=== PATIENT | male | born 1975 | race Caucasian/White ===

== ENCOUNTER 2018-11-10 13:27 | Emergency (ER) | payer SELFPAY ==
--- OUTSIDE RECORDS SUMMARY | 2018-11-10 13:29 | XMS REPORT | Continuity of Care Document ---
:1975 Author Organization [facility] Address [address] [place] [address] Phone Unavailable Care Team Providers Name Role Phone PHYSICIAN, NO Primary Care Physician Unavailable Insurance Providers Guarantor Geeta Newman Address [address] [place] [address] Email NONE Payer Self Pay Insurance Subscriber's Name Geeta Newman Relationship Self / Same As Patient Group Number NA Group Name NA Advance Directives Directive Response Recorded Date/Time Advance Directive on File No 08/02/18 11:18pm Name of Surrogate/Decision Maker NA 08/02/18 11:19pm Patient/Family Given Education Material R/T Y - KR...08/02/18 08/02/18 11: 19pm Directives? Chief Complaint and Reason for Visit Chief Complaint Extremity Pain/Injury Reason for Visit Contusion of hand Problems Active ProblemsNo active problem information available. Past Problems Medical Problem Onset Date Status Cellulitis of right upper extremity Unknown Acute Contusion of hand Unknown Acute Lumbago Unknown Acute Poison loulou dermatitis Unknown Acute Medications Current Home Medications Medication Dose Units Route Directions Days Qty Instructions Start Date Acetamin/Codei 1 Tab ORAL Every 6 Hours 15 Tablet 08/03/18 ne 300/30 Mg * As Needed as (Tylenol With needed for Codeine #3 300/30 Mg *) 300/30 Mg Tab Naproxen 1 Tab ORAL Twice A Day 30 Days 60 Tablet 08/03/18 (Naproxen 500 for Pain Mg) 500 Mg Tab Past Home Medications Medication Directions Ordered Status Acetaminophen W/ Codeine #3 * Every 6 Hours As Needed for 08/12/17 Discontinued (Tylenol Codeine #3 300MG/30MG *) Pain 1 Tab Tab, 1 Tab Oral Clindamycin Hcl (Cleoci 300 Mgn Three Times A Day for 08/12/17 Discontinued *) 300 Mg Cap, 1 Cap Oral Cellulitis Fluconazole (Diflucan *) 100 Mg Daily for Fungal Infection 08/12/17 Discontinued Tab, 100 Mg Oral Social History Social History Problem Response Recorded Date/Time Onset Date Status Hx Physical Abuse No 08/02/2018 11:18pm Not Applicable Not Applicable Smoking Status Start Date Stop Date Never smoker Hospital Discharge Instructions No hospital discharge instruction information available. Plan of Care Discharge Date 08/03/18 12:16am Instructions/Education Provided Hand Contusion, [id number]-Ewmx Prescriptions See Medication Section Referrals NO PHYSICIAN Additional Instructions/Education Recommend that you take the Tylenol #3 as needed for pain, also take the Naproxen 500 mg 2 times daily for inflammatory pain, and follow up with your primary doctor in 2 days for re check of your condition, or otherwise return to the ED if your condition worsens. Functional Status No functional status information available. Allergies, Adverse Reactions, Alerts Allergen Type Severity Reaction Status Last Updated Iodine ([id number]) Allergy Severe Active 08/10/17 Sulfur ([id number]) Allergy Severe Active 08/10/17 Penicillins ([id number]) Allergy Severe Active 08/10/17 Immunizations Immunization Event Date Type Not Given Dose Number Lot Number Glass Cut Off Tender Reason TDaP 08/10/17 Not Given Other SANOFI PS Vital Signs Acute Vital Signs Vital Response Date/Time Blood Pressure 118/82 mm Hg 08/03/2018 12:15am Pulse Pulse Rate (adult) 72 beats per minute (60 - 100) 08/03/2018 12:15am Respiratory Rate 16 breaths per minute (10 - 24) 08/03/2018 12:15am Temperature Source Oral 08/02/2018 11:18pm Height 5 ft 8.5 in 08/02/2018 11:18pm Weight 205 lb 08/02/2018 11:18pm Body Mass Index 30.7 kg/m^2 08/02/2018 11:18pm Results No relevant diagnostic test, laboratory data and/or discharge summary information available. Procedures Procedure Status Date Provider(s) X-ray of right hand, three or more views Completed 08/02/18 ROSALBA OQUENDO MD Encounters Encounter Location Arrival/Admit Date Discharge/Depart Date Attending Provider Departed [place] 08/02/18 11:13pm 08/03/18 12:16am ROSALBA OQUENDO Emergency [facility] Recent Diagnosis
--- OUTSIDE RECORDS SUMMARY | 2018-11-10 13:30 | XMS REPORT | Continuity of Care Document ---
:1975 Author Organization [facility] Address [address] [place] [address] Phone Unavailable Care Team Providers Name Role Phone PHYSICIAN, NO Primary Care Physician Unavailable Insurance Providers Guarantor Geeta Newman Address [address] [place] [address] Email NONE Payer Self Pay Insurance Subscriber's Name Geeta Newman Relationship Self / Same As Patient Group Number NA Group Name NA Advance Directives Directive Response Recorded Date/Time Advance Directive on File No 09/13/18 12:25pm Name of Surrogate/Decision Maker NA 09/13/18 1:16pm Patient/Family Given Education Material R/T Y - 09-13-...MP 09/13/18 1: 16pm Directives? Chief Complaint and Reason for Visit Chief Complaint Skin Rash/Abscess/Wound Reason for Visit Allergic contact dermatitis Problems Active ProblemsNo active problem information available. Past Problems Medical Problem Onset Date Status Allergic contact dermatitis Unknown Acute Cellulitis of right upper extremity Unknown Acute Contusion of hand Unknown Acute Lumbago Unknown Acute Poison loulou dermatitis Unknown Acute Medications Current Home Medications Medication Dose Units Route Directions Days Qty Instructions Start Date Acetamin/Codeine 1 Tab ORAL Every 6 Hours 15 08/03/ 300/30 Mg * (Tylenol As Needed as Tablet 19 With Codeine #3 needed for 300/30 Mg *) 300/30 Mg Tab Methylprednisolone 1 Pkt ORAL As Directed 1 Packet FOLLOW 09/13/ (Medrol Dosepak *) 1 for INSTRUCTIONS 19 Pkt Pkt Inflammation ON DOSEPAK Naproxen (Naproxen 1 Tab ORAL Twice A Day 30 60 02/17/ 500 Mg) 500 Mg Tab for Pain Days Tablet 19 Past Home Medications Medication Directions Ordered Status Acetaminophen W/ Codeine #3 * Every 6 Hours As Needed for 08/12/17 Discontinued (Tylenol Codeine #3 300MG/30MG *) Pain 1 Tab Tab, 1 Tab Oral Clindamycin Hcl (Cleoci 300 Mgn) Three Times A Day for 08/12/17 Discontinued 300 Mg Cap, 1 Cap Oral Cellulitis Fluconazole (Diflucan *) 100 Mg Daily for Fungal Infection 08/12/17 Discontinued Tab, 100 Mg Oral Social History Social History Problem Response Recorded Date/Time Onset Date Status Hx Physical Abuse No 09/13/2018 12:25pm Not Applicable Not Applicable Smoking Status Start Date Stop Date Never smoker Hospital Discharge Instructions No hospital discharge instruction information available. Plan of Care Discharge Date 09/13/18 1:21pm Instructions/Education Provided Contact Dermatitis, Wmli-[id number] Forms Provided Portal Welcome Letter Prescriptions See Medication Section Referrals NO PHYSICIAN Additional Instructions/Education DIAGNOSIS: ALLERGIC CONTACT DERMATITIS PRESCRIPTION: MEDROL DOSE PACK DIRECTED FOLLOW UP: WITH PRIMARY CARE OR MAMMOGRAPHY TECHNOLOGIST IN 2 DAYS * RETURN TO EMERGENCY DEPARTMENT FOR ANY CHANGE IN CONDITION OR WORSENING* INSTRUCTIONS: DRINK PLENTY OF FLUIDS [facility] [employer] MAY TAKE BENADRYL NEEDED DAILY PER DIRECTIONS FOR ITCHING MAY TAKE TYLENOL OR IBUPROFEN PER BOTTLE DIRECTIONS AVOID CONTACT WITH ANY KNOWN ALLERGENS OR CHEMICALS Functional Status No functional status information available. Allergies, Adverse Reactions, Alerts Allergen Type Severity Reaction Status Last Updated Iodine ([id number]) Allergy Severe Active 08/10/17 Sulfur ([id number]) Allergy Severe Active 08/10/17 Penicillins ([id number]) Allergy Severe Active 08/10/17 Immunizations Immunization Event Date Type Not Given Dose Number Lot Number Cleaner And Preparer Reason TDaP 08/10/17 Not Given Other SANOFI PS Vital Signs Acute Vital Signs Vital Response Date/Time Blood Pressure 121/86 mm Hg 09/13/2018 1:25pm Pulse Pulse Rate (adult) 88 beats per minute (60 - 100) 09/13/2018 1:25pm Respiratory Rate 18 breaths per minute (10 - 24) 09/13/2018 1:25pm Temperature Source Oral 09/13/2018 1:25pm Results No relevant diagnostic test, laboratory data and/or discharge summary information available. Procedures Procedure Status Date Provider(s) EMERGENCY DEPT VISIT Completed 08/02/18 X-RAY EXAM OF HAND Completed 08/02/18 X-ray of right hand, three or more views Completed 08/02/18 ROSALBA OQUENDO MD Encounters Encounter Location Arrival/Admit Date Discharge/Depart Date Attending Provider Departed [place] 09/13/18 12:13pm 09/13/18 1:21pm REAGAN WASSERMAN Emergency Room [facility] Departed [place] 08/02/18 11:13pm 08/03/18 12:16am ROSALBA OQUENDO Emergency [facility] Recent Diagnosis
--- OUTSIDE RECORDS SUMMARY | 2018-11-10 13:30 | XMS REPORT | Continuity of Care Document ---
:1975 Author Organization [facility] Address [address] [place] [address] Phone Unavailable Care Team Providers Name Role Phone PHYSICIAN, NO Primary Care Physician Unavailable Insurance Providers Guarantor Geeta Newman Address [address] [place] [address] Email NONE Payer Self Pay Insurance Subscriber's Name Geeta Newman Relationship Self / Same As Patient Group Number NA Group Name NA Advance Directives Directive Response Recorded Date/Time Advance Directive on File No 10/01/18 9:04pm Patient/Family Given Education Material R/T Y - 10/01/18...MK 10/01/18 9: 53pm Directives? Chief Complaint and Reason for Visit Chief Complaint Skin Rash/Abscess/Wound Reason for Visit Poison ngoc dermatitis Problems Medical Problem Onset Date Status Poison ngoc dermatitis Unknown Acute Past Problems Medical Problem Onset Date Status Allergic contact dermatitis Unknown Acute Cellulitis of right upper extremity Unknown Acute Contusion of hand Unknown Acute Lumbago Unknown Acute Poison ngoc dermatitis Unknown Acute Medications Current Home Medications Medication Dose Units Route Directions Days Qty Instructions Start Date Acetamin/Codeine 1 Tab ORAL Every 6 Hours 15 08/03/ 300/30 Mg * (Tylenol As Needed as Tablet 19 With Codeine #3 needed for 300/30 Mg *) 300/30 Mg Tab Methylprednisolone 1 Pkt ORAL As Directed 1 FOLLOW 09/13/ (Medrol Dosepak *) 1 for Packet INSTRUCTIONS 19 Pkt Pkt Inflammation ON DOSEPAK Naproxen (Naproxen 1 Tab ORAL Twice A Day 30 60 08/03/ 500 Mg) 500 Mg Tab for Pain Days Tablet 19 Triamcinolone 1 Applic TOPICAL Twice A Day 30 15 Gram apply to 10/01/ Acetonide for Allergy Days affected 19 (Aristocort 0.5% *) area(s) 15 Gm Cr Past Home Medications Medication Directions Ordered Status [...] Onset Date Status Hx Physical Abuse No 10/01/2018 9:04pm Not Applicable Not Applicable Smoking Status Start Date Stop Date Never smoker Hospital Discharge Instructions No hospital discharge instruction information available. Plan of Care Discharge Date 10/01/18 9:50pm Instructions/Education Provided Poison Ngoc Dermatitis, Bxre-tz-[id number] Forms Provided Portal Welcome Letter Prescriptions See Medication Section Referrals NO PHYSICIAN Additional Instructions/Education CONTINUE WITH OVER THE COUNTER BENADRYL, CALAMINE, AND HYDROCORTISONE CREAM . ALSO CAN USE PRESCRIPTION STRENGTH TRIAMCINOLONE 0.5 % CREAM APPLY TO AFFECTED AREA TWICE A DAY. FOLLOW UP WITH A PRIMARY CARE PROVIDER IN 2-3 DAYS RETURN TO THE ER IF YOUR SYMPTOMS WORSEN Functional Status No functional status information available. Allergies, Adverse Reactions, Alerts Allergen Type Severity Reaction Status Last Updated Iodine ([id number]) Allergy Severe Active 08/10/17 Sulfur ([id number]) Allergy Severe Active 08/10/17 Penicillins ([id number]) Allergy Severe Active 08/10/17 Immunizations Immunization Event Date Type Not Given Dose Number Lot Number Assistant Secretary Reason TDaP 08/10/17 Not Given Other SANOFI PS Vital Signs Acute Vital Signs Vital Response Date/Time Blood Pressure 135/80 mm Hg 10/01/2018 9:53pm Pulse Pulse Rate (adult) 72 beats per minute (60 - 100) 10/01/2018 9:53pm Respiratory Rate 20 breaths per minute (10 - 24) 10/01/2018 9:53pm Temperature Source Oral 10/01/2018 9:53pm Height 5 ft 8 in 10/01/2018 9:04pm Weight 203.13 lb 10/01/2018 9:04pm Body Mass Index 30.9 kg/m^2 10/01/2018 9:04pm Results No relevant diagnostic test, laboratory data and/or discharge summary information available. Procedures Procedure Status Date Provider(s) EMERGENCY DEPT VISIT Completed 08/02/18 X-RAY EXAM OF HAND Completed 08/02/18 EMERGENCY DEPT VISIT Completed 09/13/18 THER/PROPH/DIAG INJ SC/IM Completed 09/13/18 X-ray of right hand, three or more views Completed 08/02/18 ROSALBA OQUENDO MD Encounters Encounter Location Arrival/Admit Date Discharge/Depart Date Attending Provider Registered [place] 10/01/18 9:00pm ROSALBA OQUENDO Emergency Room [facility] Departed [place] 09/13/18 12:13pm 09/13/18 1:21pm REAGAN WASSERMAN Emergency Room [facility] Departed [place] 08/02/18 11:13pm 08/03/18 12:16am ROSALBA OQUENDO Emergency Room [facility] Recent Diagnosis
--- NOTE | 2018-11-10 13:52 | EDPHYS ---
Physician Documentation [facility] Name: Artis Myers Age: 43 yrs Sex: Male : 1975 Arrival Date: 11/10/2018 Time: 13:28 Bed 12 Private MD: Unknown, Unknown ED Physician Justin Glez HPI: 11/10 13:51 This 43 yrs old Male presents to ER via Ambulatory with complaints of Rash. pm1 18:23 The patient's rash thought to be caused by possible poison ngoc. The rash is located on pm1 the right arm and left arm. The rash can be described as macular, papular. Onset: The symptoms/episode began/occurred 3 day(s) ago. Associated signs and symptoms: Pertinent positives: itching, Pertinent negatives: burning sensation, difficulty breathing, fever, swelling of lips, swelling of throat, swelling of tongue, vomiting. Severity of symptoms: in the emergency department the symptoms are unchanged Pain is currently a 0 / 10. Treatment given at home: OTC lotion/cream. The patient has not experienced similar symptoms in the past. The patient has not recently seen a physician. Onset after cutting down some trees/shrub with ngoc on it. Historical: - Allergies: 13:36 Iodine; sv 13:36 Sulfa (Sulfonamide Antibiotics); sv - PMHx: 13:36 None; sv - PSHx: 13:36 None; sv - Immunization history:: Adult Immunizations up to date. - Social history:: Smoking status: Patient/guardian denies using tobacco, Patient uses street drugs, marijuana. - Ebola Screening: : No symptoms or risks identified at this time. ROS: 18:23 Constitutional: Negative for fever, chills, and weight loss, Eyes: Negative for injury, pm1 pain, redness, and discharge, ENT: Negative for injury, pain, and discharge, Neck: Negative for injury, pain, and swelling, Cardiovascular: Negative for chest pain, palpitations, and edema, Respiratory: Negative for shortness of breath, cough, wheezing, and pleuritic chest pain, Abdomen/GI: Negative for abdominal pain, nausea, vomiting, diarrhea, and constipation, Back: Negative for injury and pain, : Negative for injury, bleeding, discharge, and swelling, MS/Extremity: Negative for injury and deformity. 18:23 Neuro: Negative for headache, weakness, numbness, tingling, and seizure. 18:23 Skin: Positive for rash, of the left arm and right arm. Exam: 18:23 Constitutional: This is a well developed, well nourished patient who is awake, alert, pm1 and in no acute distress. Head/Face: Normocephalic, atraumatic. Eyes: Pupils equal round and reactive to light, extra-ocular motions intact. Lids and lashes normal. Conjunctiva and sclera are non-icteric and not injected. Cornea within normal limits. Periorbital areas with no swelling, redness, or edema. ENT: Nares patent. No nasal discharge, no septal abnormalities noted. Tympanic membranes are normal and external auditory canals are clear. Oropharynx with no redness, swelling, or masses, exudates, or evidence of obstruction, uvula midline. Mucous membranes moist. Neck: Trachea midline, no thyromegaly or masses palpated, and no cervical lymphadenopathy. Supple, full range of motion without nuchal rigidity, or vertebral point tenderness. No Meningismus. Chest/axilla: Normal chest wall appearance and motion. Nontender with no deformity. No lesions are appreciated. Cardiovascular: Regular rate and rhythm with a normal S1 and S2. No gallops, murmurs, or rubs. Normal PMI, no JVD. No pulse deficits. Respiratory: Lungs have equal breath sounds bilaterally, clear to auscultation and percussion. No rales, rhonchi or wheezes noted. No increased work of breathing, no retractions or nasal flaring. Abdomen/GI: Soft, non-tender, with normal bowel sounds. No distension or tympany. No guarding or rebound. No evidence of tenderness throughout. Back: No spinal tenderness. No costovertebral tenderness. Full range of motion. 18:23 Skin: Appearance: normal except for affected area, consistent with contact dermatitis, on the left arm and right arm. Vital Signs: 13:36 BP 130 / 78; Pulse 86; Resp 16; Temp 98; Pulse Ox 99% ; Weight 95.25 kg; Height 5 ft. 8 sv in. (172.72 cm); Pain 0/10; 13:36 Body Mass Index 31.93 (95.25 kg, 172.72 cm) sv MDM: 13:46 Patient medically screened. pm1 13:51 Data reviewed: vital signs. Data interpreted: Pulse oximetry: on room air is 99 %. pm1 Interpretation: normal. Counseling: I had a detailed discussion with the patient and/or guardian regarding: the historical points, exam findings, and any diagnostic results supporting the discharge/admit diagnosis, the need for outpatient follow up, to return to the emergency department if symptoms worsen or persist or if there are any questions or concerns that arise at home. Administered Medications: 14:01 Drug: predniSONE 60 mg Route: PO; 14:09 Follow up: Response: Medication administered at discharge. ss 14:01 Drug: Pepcid 20 mg Route: PO; ss 14:10 Follow up: Response: Medication administered at discharge. Disposition: 19:53 Co-signature as Attending Physician, Justin Glez MD. ma2 Disposition: 11/10/18 13:52 Discharged to Home. Impression: Allergic contact dermatitis. - Condition is Stable. - Discharge Instructions: Contact Dermatitis, Poison Ngoc Dermatitis. - Prescriptions for Benadryl 25 mg Oral Capsule - take 1 capsule by ORAL route every 6 hours As needed; 30 tablet. Keflex 500 mg Oral Capsule - take 1 capsule by ORAL route every 6 hours for 10 days; 40 capsule. Pepcid 20 mg Oral Tablet - take 1 tablet by ORAL route every 12 hours for 10 days; 20 tablet. Medrol (Eric) 4 mg Oral Tablets, Dose Pack - take 1 tablet by ORAL route as directed - follow package instructions; 1 packet. - Medication Reconciliation Form, Thank You Letter, Antibiotic Education, Prescription Opioid Use form. - Follow up: Emergency Department; When: As needed; Reason: Worsening of condition. Follow up: Private Physician; When: 2 - 3 days; Reason: Recheck today's complaints, Continuance of care, Re-evaluation by your physician. - Problem is new. - Symptoms have improved. Signatures: Rula Peterson RN RN Christina Olivares RN RN ss Aljeandro Martínez NP SENIOR C DEVELOPER pm1 Justin Glez MD MD ma2 Corrections: (The following items were deleted from the chart) 14:10 13:52 11/10/2018 13:52 Discharged to Home. Impression: Allergic contact dermatitis. ss Condition is Stable. Forms are Medication Reconciliation Form, Thank You Letter, Antibiotic Education, Prescription Opioid Use. Follow up: Emergency Department; When: As needed; Reason: Worsening of condition. Follow up: Private Physician; When: 2 - 3 days; Reason: Recheck today's complaints, Continuance of care, Re-evaluation by your physician. Problem is new. Symptoms have improved. pm1
--- NOTE | 2018-11-10 13:52 | ER ---
Nurse's Notes [facility] Name: Artis Myers Age: 43 yrs Sex: Male : 1975 Arrival Date: 11/10/2018 Time: 13:28 Bed 12 Private MD: Unknown, Unknown Diagnosis: Allergic contact dermatitis Presentation: 11/10 13:35 Presenting complaint: Patient states: rash to bilateral arms started 3 days ago. sv Transition of care: patient was not received from another setting of care. Onset of symptoms was November 08, 2018. Care prior to arrival: None. 13:35 Method Of Arrival: Ambulatory sv 13:35 Acuity: DAIANA 5 sv 14:10 Risk Assessment: Do you want to hurt yourself or someone else? Patient reports no ss desire to harm self or others. Initial Sepsis Screen: Does the patient meet any 2 criteria? No. Patient's initial sepsis screen is negative. Does the patient have a suspected source of infection? No. Patient's initial sepsis screen is negative. Historical: - Allergies: 13:36 Iodine; sv 13:36 Sulfa (Sulfonamide Antibiotics); sv - PMHx: 13:36 None; sv - PSHx: 13:36 None; sv - Immunization history:: Adult Immunizations up to date. - Social history:: Smoking status: Patient/guardian denies using tobacco, Patient uses street drugs, marijuana. - Ebola Screening: : No symptoms or risks identified at this time. Screenin:00 Abuse screen: Denies threats or abuse. Denies injuries from another. Nutritional ss screening: No deficits noted. Tuberculosis screening: Never had TB. Fall Risk None identified. Assessment: 14:04 General: Appears in no apparent distress. comfortable, Behavior is calm, cooperative. ss Pain: Denies pain. Neuro: Level of Consciousness is awake, alert, obeys commands. Cardiovascular: Capillary refill < 3 seconds is brisk in bilateral fingers. Respiratory: Airway is patent Respiratory effort is even, unlabored, Respiratory pattern is regular, symmetrical. EENT: Oral mucosa is moist. Derm: Skin is intact, is healthy with good turgor, Skin is dry, Skin is pink, warm \T\ dry. normal. Derm: Skin Rash noted that is itchy, red. Vital Signs: 13:36 BP 130 / 78; Pulse 86; Resp 16; Temp 98; Pulse Ox 99% ; Weight 95.25 kg; Height 5 ft. 8 sv in. (172.72 cm); Pain 0/10; 13:36 Body Mass Index 31.93 (95.25 kg, 172.72 cm) sv ED Course: 13:28 Patient arrived in ED. ag5 13:30 Unknown, Unknown is Private Physician. ag5 13:36 Triage completed. sv 13:36 Arm band placed on. sv 13:39 Alejandro Martínez NP is PHCP. pm1 13:39 Justin Glez MD is Attending Physician. pm1 14:00 Patient has correct armband on for positive identification. Bed in low position. Call ss light in reach. 14:01 Christina Olivares, NICK is Primary Nurse. ss 14:06 No provider procedures requiring assistance completed. Patient did not have IV access ss during this emergency room visit. Administered Medications: 14:01 Drug: predniSONE 60 mg Route: PO; ss 14:09 Follow up: Response: Medication administered at discharge. 14:01 Drug: Pepcid 20 mg Route: PO; ss 14:10 Follow up: Response: Medication administered at discharge. Outcome: 13:52 Discharge ordered by . pm1 14:06 Discharged to home ambulatory. ss 14:06 Condition: good 14:06 Discharge instructions given to patient, family, Instructed on discharge instructions, follow up and referral plans. medication usage, Demonstrated understanding of instructions, follow-up care, medications, Prescriptions given X 4. 14:10 Patient left the ED. Signatures: Rula Peterson RN RN Christina Olivares RN RN Alejandro Martínez NP INDIVIDUAL SMALL GROUP INSTRUCTOR pm1 JonnyOphelia ag5
[2018-11-10] MEDS ORDERED: predniSONE 20 MG TAB ONE (14:14)
[2018-11-10] MEDS ORDERED: FAMOTIDINE 20 MG TAB ONE (14:14)
== END 2018-11-10 14:10 | disposition home or self-care (01) ==
LOC: ER 13:27
DX: L23.9 Allergic contact dermatitis, unspecified cause (principal); Z88.2 Allergy status to sulfonamides; Z88.8 Allergy status to other drugs, medicaments and biological substances
CPT/HCPCS: 99283; J7512

== ENCOUNTER 2019-08-11 18:18 | Emergency (ER) | payer SELFPAY ==
[2019-08-11] MEDS ORDERED: CYCLOBENZAPRINE 10 MG TAB ONE (19:54)
[2019-08-11] MEDS ORDERED: KETOROLAC 30 MG/ML INJ ONE (19:54)
--- NOTE | 2019-08-12 00:09 | EDPHYS ---
Physician Documentation [facility] Name: Artis Myers Age: 43 yrs Sex: Male : 1975 Arrival Date: 08/11/2019 Time: 18:20 Bed 15 Private MD: ED Physician Vahid Mcnamara HPI: 08/11 20:27 This 43 yrs old Male presents to ER via Ambulatory with complaints of Low tw4 Back Pain. 20:27 The patient presents with pain that is chronic, with no known mechanism of injury. tw4 20:28 The symptoms are located in the low back. The pain does not radiate. The problem was tw4 sustained without known cause. Onset: The symptoms/episode began/occurred 2 week(s) ago. Modifying factors: The patient symptoms are alleviated by rest, the patient symptoms are aggravated by lifting, movement. Severity of symptoms: At their worst the symptoms were mild, in the emergency department the symptoms are unchanged. The patient has not experienced similar symptoms in the past. Historical: - Allergies: 18:21 Iodine; sv 18:21 Sulfa (Sulfonamide Antibiotics); sv - PMHx: 18:22 None; sv - PSHx: 18:21 None; sv - Immunization history:: Adult Immunizations up to date. - Coronavirus screen:: The patient has NOT traveled to [place] in the past 14 days. Proceed with normal triage process as indicated. The patient has NOT had contact with known/suspected case of Coronavirus? Proceed with normal triage procedures. - Social history:: Smoking status: Patient denies any tobacco usage or history of. - Ebola Screening: : No symptoms or risks identified at this time. ROS: 20:28 Constitutional: Negative for fever, chills, and weight loss, Eyes: Negative for injury, tw4 pain, redness, and discharge, Cardiovascular: Negative for chest pain, palpitations, and edema, Respiratory: Negative for shortness of breath, cough, wheezing, and pleuritic chest pain, Abdomen/GI: Negative for abdominal pain, nausea, vomiting, diarrhea, and constipation, MS/Extremity: Negative for injury and deformity, Skin: Negative for injury, rash, and discoloration, Neuro: Negative for headache, weakness, numbness, tingling, and seizure. 20:28 Back: Positive for decreased range of motion, pain at rest, pain with movement, Negative for injury or acute deformity. Exam: 20:28 Constitutional: This is a well developed, well nourished patient who is awake, alert, tw4 and in no acute distress. Head/Face: Normocephalic, atraumatic. Chest/axilla: Normal chest wall appearance and motion. Nontender with no deformity. No lesions are appreciated. Cardiovascular: Regular rate and rhythm with a normal S1 and S2. No gallops, murmurs, or rubs. Normal PMI, no JVD. No pulse deficits. Respiratory: Lungs have equal breath sounds bilaterally, clear to auscultation and percussion. No rales, rhonchi or wheezes noted. No increased work of breathing, no retractions or nasal flaring. Abdomen/GI: Soft, non-tender, with normal bowel sounds. No distension or tympany. No guarding or rebound. No evidence of tenderness throughout. Skin: Warm, dry with normal turgor. Normal color with no rashes, no lesions, and no evidence of cellulitis. MS/ Extremity: Pulses equal, no cyanosis. Neurovascular intact. Full, normal range of motion. 20:28 Back: pain, that is mild, of the left low back and right low back, muscle spasm, is tw4 appreciated in the left low back and right low back. Vital Signs: 18:22 BP 130 / 89; Pulse 71; Resp 16; Temp 97.7; Pulse Ox 100% ; Weight 90.72 kg; Height 5 sv ft. 8 in. (172.72 cm); Pain 7/10; 20:30 BP 123 / 83; Pulse 75; Resp 17; Temp 98; Pulse Ox 99% on R/A; rr5 18:22 Body Mass Index 30.41 (90.72 kg, 172.72 cm) sv MDM: 19:39 Patient medically screened. tw4 20:28 Differential diagnosis: arthritis, strain, contusion, UTI. Data reviewed: vital signs, tw4 nurses notes. Data reviewed: lab test result(s), urinalysis. Counseling: I had a detailed discussion with the patient and/or guardian regarding: the historical points, exam findings, and any diagnostic results supporting the discharge/admit diagnosis, lab results. Medication response: Toradol markedly relieved the patient's pain. Response to treatment: and as a result, I will discharge patient. Special discussion: I discussed with the patient/guardian in detail that at this point there is no indication for admission to the hospital. It is understood, however, that if the symptoms persist or worsen the patient needs to return immediately for re-evaluation. 08/11 20:10 Order name: Urine Dipstick-Ancillary (obtain specimen); Complete Time: 20:24 tw4 Administered Medications: 19:54 Drug: Flexeril 10 mg Route: PO; rr5 20:30 Follow up: Response: No adverse reaction rr5 19:55 Drug: TORadol 60 mg Route: IM; Site: right gluteus; rr5 20:30 Follow up: Response: No adverse reaction rr5 Disposition: 08/11/19 20:19 Discharged to Home. Impression: Sprain of ligaments of lumbar spine. - Condition is Stable. - Discharge Instructions: Back Pain, Adult, Back Injury Prevention. - Prescriptions for Ibuprofen 800 mg Oral Tablet - take 1 tablet by ORAL route every 8 hours As needed take with food; 30 tablet. Cyclobenzaprine 10 mg Oral Tablet - take 1 tablet by ORAL route every 8 hours As needed; 30 tablet. Tramadol 50 mg Oral Tablet - take 1 tablet by ORAL route every 8 hours as needed; 12 tablet. - Medication Reconciliation Form, Thank You Letter, Antibiotic Education, Prescription Opioid Use form. - Follow up: Private Physician; When: Upon discharge from the Emergency Department; Reason: If symptoms return, Recheck today's complaints, Continuance of care, Re-evaluation by your physician. - Problem is new. - Symptoms have improved. Signatures: Rula Peterson RN RN Vahid Mcnamara MD MD tw4 Salvador Martinez RN RN rr5 Corrections: (The following items were deleted from the chart) 20:41 20:19 08/11/2019 20:19 Discharged to Home. Impression: Sprain of ligaments of lumbar rr5 spine. Condition is Stable. Forms are Medication Reconciliation Form, Thank You Letter, Antibiotic Education, Prescription Opioid Use. Follow up: Private Physician; When: Upon discharge from the Emergency Department; Reason: If symptoms return, Recheck today's complaints, Continuance of care, Re-evaluation by your physician. Problem is new. Symptoms have improved. tw4
--- NOTE | 2019-08-12 00:10 | ER ---
Nurse's Notes [facility] Name: Artis Myers Age: 43 yrs Sex: Male : 1975 Arrival Date: 08/11/2019 Time: 18:20 Bed 15 Private MD: Diagnosis: Sprain of ligaments of lumbar spine Presentation: 08/11 18:21 Presenting complaint: Patient states: "tight feeling" around the low back area and side sv x couple of weeks. Denies fall or recent injury. Transition of care: patient was not received from another setting of care. Onset of symptoms was July 2019. Care prior to arrival: None. 18:21 Method Of Arrival: Ambulatory sv 18:21 Acuity: DAIANA 3 sv 19:30 Risk Assessment: Do you want to hurt yourself or someone else? Patient reports no rr5 desire to harm self or others. Initial Sepsis Screen: Does the patient meet any 2 criteria? No. Patient's initial sepsis screen is negative. Does the patient have a suspected source of infection? No. Patient's initial sepsis screen is negative. Triage Assessment: 18:23 General: Appears in no apparent distress. uncomfortable, Behavior is calm, cooperative, sv appropriate for age. Pain: Complains of pain in low back area. Neuro: Level of Consciousness is awake, alert, obeys commands, Gait is steady. Respiratory: Respiratory effort is even, unlabored. Historical: - Allergies: 18:21 Iodine; sv 18:21 Sulfa (Sulfonamide Antibiotics); sv - PMHx: 18:22 None; sv - PSHx: 18:21 None; sv - Immunization history:: Adult Immunizations up to date. - Coronavirus screen:: The patient has NOT traveled to [place] in the past 14 days. Proceed with normal triage process as indicated. The patient has NOT had contact with known/suspected case of Coronavirus? Proceed with normal triage procedures. - Social history:: Smoking status: Patient denies any tobacco usage or history of. - Ebola Screening: : No symptoms or risks identified at this time. Screenin:20 Abuse screen: Denies threats or abuse. Denies injuries from another. Nutritional rr5 screening: No deficits noted. Tuberculosis screening: No symptoms or risk factors identified. Fall Risk None identified. Total Echevarria Fall Scale indicates No Risk (0-24 pts). Assessment: 19:20 General: Appears in no apparent distress. uncomfortable, Behavior is calm, cooperative, rr5 appropriate for age. 19:20 Pain: Complains of pain in left low back and right low back Pain does not radiate. Pain rr5 currently is 7 out of 10 on a pain scale. Quality of pain is described as aching, Pain began gradually, Is intermittent. Neuro: Level of Consciousness is awake, alert, obeys commands, Oriented to person, place, time, situation. Cardiovascular: Capillary refill < 3 seconds Patient's skin is warm and dry. Respiratory: Airway is patent Respiratory effort is even, unlabored, Respiratory pattern is regular, symmetrical. GI: Abdomen is round Bowel sounds present X 4 quads. Abd is soft and non tender X 4 quads. Patient currently denies abdominal pain. : Denies burning with urination, pain. EENT: No signs and/or symptoms were reported regarding the EENT system. Derm: Skin is intact, is healthy with good turgor, Skin temperature is warm. Musculoskeletal: Circulation, motion, and sensation intact. Capillary refill < 3 seconds. 20:38 Reassessment: Patient appears in no apparent distress at this time. Patient is alert, rr5 oriented x 3, equal unlabored respirations, skin warm/dry/pink. discharge instruction given and explained without complaints made. Patient states feeling better. Patient states symptoms have improved. Vital Signs: 18:22 BP 130 / 89; Pulse 71; Resp 16; Temp 97.7; Pulse Ox 100% ; Weight 90.72 kg; Height 5 sv ft. 8 in. (172.72 cm); Pain 7/10; 20:30 BP 123 / 83; Pulse 75; Resp 17; Temp 98; Pulse Ox 99% on R/A; rr5 18:22 Body Mass Index 30.41 (90.72 kg, 172.72 cm) sv ED Course: 18:20 Patient arrived in ED. as 18:21 Arm band placed on. sv 18:22 Triage completed. sv 19:20 Patient has correct armband on for positive identification. Bed in low position. Call rr5 light in reach. 19:38 Salvador Martinez RN is Primary Nurse. rr5 19:39 Vahid Mcnamara MD is Attending Physician. tw4 20:30 No provider procedures requiring assistance completed. IV discontinued. rr5 Administered Medications: 19:54 Drug: Flexeril 10 mg Route: PO; rr5 20:30 Follow up: Response: No adverse reaction rr5 19:55 Drug: TORadol 60 mg Route: IM; Site: right gluteus; rr5 20:30 Follow up: Response: No adverse reaction rr5 Outcome: 20:19 Discharge ordered by . tw4 20:30 Discharged to home ambulatory. rr5 20:30 Condition: stable 20:30 Discharge instructions given to patient, Instructed on discharge instructions, follow up and referral plans. medication usage, Demonstrated understanding of instructions, follow-up care, medications, Prescriptions given X 2. 20:41 Patient left the ED. rr5 Signatures: Rula Peterson, RN RN Ebonie Mcpherson Terrence, MD MD tw4 Salvador Martinez RN RN rr5 Corrections: (The following items were deleted from the chart) 18:23 18:21 Presenting complaint: Patient states: "tight feeling" around the low back area sv and side x couple of weeks. sv 18:24 18:22 Pulse 71bpm; Resp 16bpm; Pulse Ox 100%; Temp 97.7F; 90.72 kg; Height 5 ft. 8 in.; sv BMI: 30.4; sv
[2019-08-12 02:33] VITALS: BP 123/83; TEMP 98; O2SAT 99
== END 2019-08-11 20:41 | disposition home or self-care (01) ==
LOC: ER 18:18
DX: S33.5XXA Sprain of ligaments of lumbar spine, initial encounter (principal); Z88.2 Allergy status to sulfonamides; Z91.048 Other nonmedicinal substance allergy status
CPT/HCPCS: 96372; 99283

== ENCOUNTER 2020-01-25 15:42 | Emergency (ER) | payer SELFPAY ==
[2020-01-25] MEDS ORDERED: DIPHENHYDRAMINE 50 MG/ML VIAL ONE (16:37)
[2020-01-25] MEDS ORDERED: METHYLPREDNISOLONE 125 MG INJ ONE (16:37)
--- NOTE | 2020-01-26 07:29 | ER ---
Nurse's Notes [facility] Name: Artis Myers Age: 44 yrs Sex: Male : 1975 Arrival Date: 01/25/2020 Time: 15:47 Bed 8 Private MD: Diagnosis: Dermatitis, unspecified-Poison Ngoc Presentation: 01/24 15:56 Chief complaint: Patient states: poison ngoc rash for 2.5 weeks. Trying OTC calamine, ll1 not helping. Coronavirus screen: Client denies travel out of the [place] in the last 14 days. At this time, the client does not indicate any symptoms associated with coronavirus-19. Ebola Screen: Patient denies travel to an Ebola-affected area in the 21 days before illness onset. Initial Sepsis Screen: Does the patient meet any 2 criteria? No. Patient's initial sepsis screen is negative. Risk Assessment: Do you want to hurt yourself or someone else? Patient reports no desire to harm self or others. Onset of symptoms was January 05, 2020. 15:56 Acuity: DAIANA 4 ll1 15:56 Method Of Arrival: Ambulatory ll1 16:43 Initial Sepsis Screen: Does the patient have a suspected source of infection? No. jl7 Patient's initial sepsis screen is negative. Historical: - Allergies: 15:55 Sulfa (Sulfonamide Antibiotics); ll1 15:55 Iodine; ll1 - PSHx: 15:55 Ear Tubes; ll1 - Immunization history:: Flu vaccine is not up to date. - Social history:: Smoking status: Patient denies any tobacco usage or history of. Patient/guardian denies using alcohol, street drugs, tobacco products. - Family history:: not pertinent. - Hospitalizations: : No recent hospitalization is reported. Screenin:15 Abuse screen: Denies threats or abuse. Denies injuries from another. Nutritional jl7 screening: No deficits noted. Tuberculosis screening: No symptoms or risk factors identified. Fall Risk None identified. Assessment: 16:15 General: Appears in no apparent distress. uncomfortable, Behavior is calm, cooperative, jl7 appropriate for age. Pain: Complains of pain in left arm and right arm Pain currently is 7 out of 10 on a pain scale. Neuro: Level of Consciousness is awake, alert, obeys commands, Oriented to person, place, time, situation. Cardiovascular: Patient's skin is warm and dry. Respiratory: Airway is patent Respiratory effort is even, unlabored, Respiratory pattern is regular, symmetrical. Derm: Skin is pink, warm \T\ dry. Rash noted that is red, urticaria. 16:35 Reassessment: Pt will be discharged once shot time is up. jl7 Vital Signs: 15:56 BP 149 / 86; Pulse 89; Resp 18; Temp 98.6; Pulse Ox 100% ; Weight 86.18 kg; Height 5 ll1 ft. 9 in. (175.26 cm); Pain 7/10; 16:51 BP 133 / 98; Pulse 84; Resp 17; Pulse Ox 100% ; jl7 15:56 Body Mass Index 28.06 (86.18 kg, 175.26 cm) ll1 ED Course: 15:47 Patient arrived in ED. ds1 15:56 Arm band placed on Patient placed in an exam room, on a stretcher. ll1 15:57 Triage completed. ll1 15:59 Christopher Jenkins MD is Attending Physician. rn 16:15 Patient has correct armband on for positive identification. Placed in gown. Bed in low jl7 position. Call light in reach. Side rails up X 1. Pulse ox on. NIBP on. 16:24 Grecia Shabazz, NICK is Primary Nurse. jl7 16:50 No provider procedures requiring assistance completed. Patient did not have IV access jl7 during this emergency room visit. Administered Medications: 16:33 Drug: Benadryl 50 mg Route: IM; Site: right deltoid; jl7 16:51 Follow up: Response: No adverse reaction jl7 16:34 Drug: SOLU-Medrol 125 mg Route: IM; Site: left deltoid; jl7 16:51 Follow up: Response: No adverse reaction jl7 Outcome: 16:26 Discharge ordered by . rn 16:50 Discharged to home ambulatory. jl7 16:50 Condition: stable 16:50 Discharge instructions given to patient, Instructed on discharge instructions, follow up and referral plans. medication usage, Demonstrated understanding of instructions, follow-up care, medications, Prescriptions given X 1. 16:52 Patient left the ED. jl7 Signatures: Racquel Carranza ds1 Christopher Jenikns MD MD rn Leal, Jahala, RN RN jl7 Fabrizio, Lynsay, RN RN ll1
--- NOTE | 2020-01-26 07:29 | EDPHYS ---
Physician Documentation [facility] [place] [place] Name: Artis Myers Age: 44 yrs Sex: Male : 1975 Arrival Date: 01/25/2020 Time: 15:47 Bed 8 Private MD: ED Physician Christopher Jenkins HPI: 01/24 16:22 This 44 yrs old Male presents to ER via Ambulatory with complaints of Rash. rn 16:22 The patient's rash thought to be caused by Dermatitis. The rash is located on the right rn arm and left arm. 16:23 Onset: The symptoms/episode began/occurred 2 week(s) ago. Associated signs and rn symptoms: Pertinent positives: itching, Pain. Treatment given at home: OTC lotion/cream. The patient has not experienced similar symptoms in the past. Reports working in yard, thinks got into poison ngoc, no fever, + itching, using lotion that is not making it go away. No sob or swelling. Isolated to arms. . Historical: - Allergies: 15:55 Sulfa (Sulfonamide Antibiotics); ll1 15:55 Iodine; ll1 - PSHx: 15:55 Ear Tubes; ll1 - Immunization history:: Flu vaccine is not up to date. - Social history:: Smoking status: Patient denies any tobacco usage or history of. Patient/guardian denies using alcohol, street drugs, tobacco products. - Family history:: not pertinent. - Hospitalizations: : No recent hospitalization is reported. ROS: 16:23 Constitutional: Negative for fever, chills, and weight loss, Respiratory: Negative for rn shortness of breath, cough, wheezing, and pleuritic chest pain, Skin: + rash to bilateral arms that is itchy Exam: 16:23 Constitutional: This is a well developed, well nourished patient who is awake, alert, rn and in no acute distress. Skin: Warm, dry, + erythematous rash bilateral arms in linear distribution with some coalescence, no fluctuance, no cellulitis. Vital Signs: 15:56 BP 149 / 86; Pulse 89; Resp 18; Temp 98.6; Pulse Ox 100% ; Weight 86.18 kg; Height 5 ll1 ft. 9 in. (175.26 cm); Pain 7/10; 16:51 BP 133 / 98; Pulse 84; Resp 17; Pulse Ox 100% ; jl7 15:56 Body Mass Index 28.06 (86.18 kg, 175.26 cm) ll1 MDM: 15:59 Patient medically screened. rn 16:23 Differential diagnosis: contact dermatitis, poison ngoc. Data reviewed: vital signs, rn nurses notes, and as a result, I will discharge patient. Counseling: I had a detailed discussion with the patient and/or guardian regarding: the historical points, exam findings, and any diagnostic results supporting the discharge/admit diagnosis, the need for outpatient follow up, to return to the emergency department if symptoms worsen or persist or if there are any questions or concerns that arise at home. Special discussion: I discussed with the patient/guardian in detail that at this point there is no indication for admission to the hospital. It is understood, however, that if the symptoms persist or worsen the patient needs to return immediately for re-evaluation. Administered Medications: 16:33 Drug: Benadryl 50 mg Route: IM; Site: right deltoid; [facility] 16:51 Follow up: Response: No adverse reaction [facility] 16:34 Drug: SOLU-Medrol 125 mg Route: IM; Site: left deltoid; jl7 16:51 Follow up: Response: No adverse reaction [facility] Disposition: 01/25/20 16:26 Discharged to Home. Impression: Dermatitis, unspecified - Poison Ngoc. - Condition is Stable. - Discharge Instructions: Poison Ngoc Dermatitis. - Prescriptions for Prednisone 20 mg Oral Tablet - take 1 tablet by ORAL route as directed for 10 days Days 1-5: Take 3 tablets PO once daily. Days 6-8: Take 2 tablets PO daily. Days 9-10: Take 1 tablet PO daily. Total of 10 days.; 23 tablet. - Medication Reconciliation Form, Thank You Letter, Antibiotic Education, Prescription Opioid Use form. - Follow up: Private Physician; When: As needed; Reason: Recheck today's complaints, Re-evaluation by your physician. - Problem is an ongoing problem. - Symptoms are unchanged. Signatures: Christopher Jenkins MD MD rn Leal, Jahala, RN RN jl7 Raoul Dinh RN RN ll1 Corrections: (The following items were deleted from the chart) 16:52 16:26 01/25/2020 16:26 Discharged to Home. Impression: Dermatitis, unspecified - Poison jl7 Ngoc. Condition is Stable. Forms are Medication Reconciliation Form, Thank You Letter, Antibiotic Education, Prescription Opioid Use. Follow up: Private Physician; When: As needed; Reason: Recheck today's complaints, Re-evaluation by your physician. Problem is an ongoing problem. Symptoms are unchanged. rn
[2020-01-26 09:12] VITALS: TEMP 98.6; O2SAT 100
[2020-01-26 09:13] VITALS: BP 133/98
== END 2020-01-25 16:52 | disposition home or self-care (01) ==
LOC: ER 15:42
DX: L30.9 Dermatitis, unspecified (principal); Z88.2 Allergy status to sulfonamides; Z91.048 Other nonmedicinal substance allergy status
CPT/HCPCS: 96372; 99283; J1200; J2930

== ENCOUNTER 2020-05-10 19:31 | Emergency (ER) | payer SELFPAY ==
--- NOTE | 2020-05-10 19:58 | ER ---
Nurse's Notes [facility] Name: Artis Myers Age: 44 yrs Sex: Male : 1975 Arrival Date: 05/10/2020 Time: 19:32 Bed 13 Private MD: Diagnosis: Allergic contact dermatitis Presentation: 05/10 19:51 Chief complaint: Patient states: Exposure to poison Ngoc 2 days ago. Rashes started ca1 yesterday on both arms, face, worse today. Denies difficulty breathing and swallowing. Coronavirus screen: Client denies travel out of the [place] in the last 14 days. At this time, the client does not indicate any symptoms associated with coronavirus-19. Ebola Screen: Patient negative for fever greater than or equal to 101.5 degrees Fahrenheit, and additional compatible Ebola Virus Disease symptoms Patient denies exposure to infectious person. Patient denies travel to an Ebola-affected area in the 21 days before illness onset. No symptoms or risks identified at this time. Initial Sepsis Screen: Does the patient meet any 2 criteria? No. Patient's initial sepsis screen is negative. Does the patient have a suspected source of infection? No. Patient's initial sepsis screen is negative. Risk Assessment: Do you want to hurt yourself or someone else? Patient reports no desire to harm self or others. Onset of symptoms was May 10, 2020. 19:51 Method Of Arrival: Ambulatory ca1 19:51 Acuity: DAIANA 4 ca1 Triage Assessment: 19:54 General: Appears in no apparent distress. comfortable, Behavior is calm, cooperative, ca1 appropriate for age. Pain: Denies pain. EENT: No signs and/or symptoms were reported regarding the EENT system. Neuro: Level of Consciousness is awake, alert, obeys commands, Oriented to person, place, time, situation, Appropriate for age. Derm: Skin is intact, is healthy with good turgor, Skin is pink, warm \T\ dry. Rash noted that is itchy, red, raised, on right cheek, right arm and left arm. Musculoskeletal: Circulation, motion, and sensation intact. Capillary refill < 3 seconds. Historical: - Allergies: 19:54 Iodine; ca1 19:54 Sulfa (Sulfonamide Antibiotics); ca1 - Home Meds: 19:54 None [Active]; ca1 - PMHx: 19:54 None; ca1 - PSHx: 19:54 Ear Tubes; ca1 - Immunization history:: Adult Immunizations up to date, Flu vaccine is not up to date. - Social history:: Smoking status: Patient reports the use of cigarette tobacco products, denies chronic smoking, but will smoke occasionally, Patient uses street drugs, marijuana. Screenin:55 Abuse screen: Denies threats or abuse. Denies injuries from another. Nutritional ca1 screening: No deficits noted. Tuberculosis screening: No symptoms or risk factors identified. Fall Risk None identified. Assessment: 19:55 Reassessment: See triage notes. ca1 20:18 Reassessment: Patient appears in no apparent distress at this time. Patient is alert, ca1 oriented x 3, equal unlabored respirations, skin warm/dry/pink. Vital Signs: 19:51 BP 128 / 85; Pulse 75; Resp 16 S; Temp 98(TE); Pulse Ox 99% on R/A; Weight 85.73 kg ca1 (R); Height 5 ft. 9 in. (175.26 cm) (R); Pain 0/10; 19:51 Body Mass Index 27.91 (85.73 kg, 175.26 cm) ca1 ED Course: 19:32 Patient arrived in ED. am2 19:53 Triage completed. ca1 19:54 Arm band placed on right wrist. ca1 19:55 Alejandro Martínez NP is PHCP. pm1 19:55 Kenneth Velasquez MD is Attending Physician. pm1 19:55 Patient has correct armband on for positive identification. ca1 19:55 No provider procedures requiring assistance completed. Patient did not have IV access ca1 during this emergency room visit. 19:59 Chrissy Correa, NICK is Primary Nurse. ca1 Administered Medications: 19:58 Drug: Benadryl 25 mg Route: PO; ca1 20:17 Follow up: Response: No adverse reaction ca1 20:00 Drug: Pepcid 20 mg Route: PO; ca1 20:17 Follow up: Response: No adverse reaction ca1 20:02 Drug: SOLU-Medrol 125 mg Route: IM; Site: right gluteus; ca1 20:17 Follow up: Response: No adverse reaction ca1 Outcome: 19:58 Discharge ordered by . pm1 20:18 Discharged to home ambulatory. ca1 20:18 Condition: stable 20:18 Discharge instructions given to patient, Instructed on discharge instructions, follow up and referral plans. medication usage, Demonstrated understanding of instructions, follow-up care, medications, Prescriptions given X 3. 20:18 Patient left the ED. ca1 Signatures: Alejandro Martínez NP PSYCHOTHERAPIST COUNSELOR pm1 Jennifer Lozoya am2 Chrissy Correa RN RN ca1
--- NOTE | 2020-05-10 19:58 | EDPHYS ---
Physician Documentation [facility] Name: Artis Myers Age: 44 yrs Sex: Male : 1975 Arrival Date: 05/10/2020 Time: 19:32 Bed 13 Private MD: RIKKI Physician Kenneth Velasquez HPI: 05/10 19:56 This 44 yrs old Male presents to ER via Ambulatory with complaints of Rash. pm1 19:56 The patient's rash thought to be caused by poison ngoc. The rash is located on the right pm1 arm and left arm and right cheek. The rash can be described as raised. Onset: The symptoms/episode began/occurred 2 day(s) ago. Associated signs and symptoms: Pertinent negatives: difficulty breathing, fever, swelling of lips, swelling of throat, swelling of tongue, wheezing. Severity of symptoms: in the emergency department the symptoms are worse. Treatment given at home: None. The patient has experienced similar episodes in the past, a few times. Historical: - Allergies: 19:54 Iodine; ca1 19:54 Sulfa (Sulfonamide Antibiotics); ca1 - Home Meds: 19:54 None [Active]; ca1 - PMHx: 19:54 None; ca1 - PSHx: 19:54 Ear Tubes; ca1 - Immunization history:: Adult Immunizations up to date, Flu vaccine is not up to date. - Social history:: Smoking status: Patient reports the use of cigarette tobacco products, denies chronic smoking, but will smoke occasionally, Patient uses street drugs, marijuana. ROS: 19:56 Constitutional: Negative for fever, chills, and weight loss, ENT: Negative for injury, pm1 pain, and discharge, Cardiovascular: Negative for chest pain, palpitations, and edema, Respiratory: Negative for shortness of breath, cough, wheezing, and pleuritic chest pain, Abdomen/GI: Negative for abdominal pain, nausea, vomiting, diarrhea, and constipation, Back: Negative for injury and pain, MS/Extremity: Negative for injury and deformity, Skin: Negative for injury, rash, and discoloration, Neuro: Negative for headache, weakness, numbness, tingling, and seizure. Exam: 19:56 Constitutional: This is a well developed, well nourished patient who is awake, alert, pm1 and in no acute distress. Head/Face: Normocephalic, atraumatic. 19:56 Cardiovascular: Exam negative for Rate: normal, Rhythm: regular, Pulses: no pulse deficits are appreciated. 19:56 Respiratory: Exam negative for acute changes, respiratory distress, shortness of breath, wheezing. 19:56 Skin: Appearance: normal except for affected area, consistent with contact dermatitis. 19:56 Neuro: Exam negative for acute changes, Orientation: is normal, Mentation: is normal, Motor: is normal, Gait: is steady, at a normal pace, without difficulty. Vital Signs: 19:51 BP 128 / 85; Pulse 75; Resp 16 S; Temp 98(TE); Pulse Ox 99% on R/A; Weight 85.73 kg ca1 (R); Height 5 ft. 9 in. (175.26 cm) (R); Pain 0/10; 19:51 Body Mass Index 27.91 (85.73 kg, 175.26 cm) ca1 MDM: 19:56 Data reviewed: vital signs. Data interpreted: Pulse oximetry: on room air is 99 %. pm1 Interpretation: normal. Counseling: I had a detailed discussion with the patient and/or guardian regarding: the historical points, exam findings, and any diagnostic results supporting the discharge/admit diagnosis, the need for outpatient follow up, a family practitioner, to return to the emergency department if symptoms worsen or persist or if there are any questions or concerns that arise at home. 19:57 Patient medically screened. pm1 Administered Medications: 19:58 Drug: Benadryl 25 mg Route: PO; ca1 20:17 Follow up: Response: No adverse reaction ca1 20:00 Drug: Pepcid 20 mg Route: PO; ca1 20:17 Follow up: Response: No adverse reaction ca1 20:02 Drug: SOLU-Medrol 125 mg Route: IM; Site: right gluteus; ca1 20:17 Follow up: Response: No adverse reaction ca1 Disposition: 05/11 10:58 Co-signature as Attending Physician, Kenneth Velasquez MD I agree with the assessment and matilda plan of care. Disposition: 05/10/20 19:58 Discharged to Home. Impression: Allergic contact dermatitis. - Condition is Stable. - Discharge Instructions: Poison Ngoc Dermatitis. - Prescriptions for Benadryl 25 mg Oral Capsule - take 1 capsule by ORAL route every 6 hours As needed; 30 tablet. Medrol (Eric) 4 mg Oral Tablets, Dose Pack - take 1 tablet by ORAL route as directed - follow package instructions; 1 packet. Pepcid 20 mg Oral Tablet - take 1 tablet by ORAL route every 12 hours for 10 days; 20 tablet. - Medication Reconciliation Form, Thank You Letter, Antibiotic Education, Prescription Opioid Use form. - Follow up: Emergency Department; When: As needed; Reason: Worsening of condition. Follow up: Private Physician; When: 2 - 3 days; Reason: Recheck today's complaints, Continuance of care, Re-evaluation by your physician. - Problem is new. - Symptoms have improved. Signatures: Kenneth Velasquez MD MD cha Marinas, Patrick [employer] SUPERVISOR [employer] SUPERVISOR pm1 Madeline, Chrissy RN RN ca1 Corrections: (The following items were deleted from the chart) 05/10 20:18 19:58 05/10/2020 19:58 Discharged to Home. Impression: Allergic contact dermatitis. ca1 Condition is Stable. Forms are Medication Reconciliation Form, Thank You Letter, Antibiotic Education, Prescription Opioid Use. Follow up: Emergency Department; When: As needed; Reason: Worsening of condition. Follow up: Private Physician; When: 2 - 3 days; Reason: Recheck today's complaints, Continuance of care, Re-evaluation by your physician. Problem is new. Symptoms have improved. pm1
[2020-05-10] MEDS ORDERED: FAMOTIDINE 20 MG TAB ONE (20:11)
[2020-05-10] MEDS ORDERED: METHYLPREDNISOLONE 125 MG INJ ONE (20:11)
[2020-05-10] MEDS ORDERED: DIPHENHYDRAMINE 25 MG TAB/CAP ONE (20:11)
[2020-05-11 02:57] VITALS: BP 128/85; TEMP 98; O2SAT 99
== END 2020-05-10 20:18 | disposition home or self-care (01) ==
LOC: ER 19:31
DX: L23.9 Allergic contact dermatitis, unspecified cause (principal); F17.210 Nicotine dependence, cigarettes, uncomplicated; Z88.2 Allergy status to sulfonamides; Z91.048 Other nonmedicinal substance allergy status
CPT/HCPCS: 96372; 99283; J2930

== ENCOUNTER 2020-11-08 20:06 | Emergency (ER) | payer SELFPAY ==
[2020-11-08] MEDS ORDERED: ONDANSETRON 4 MG/2 ML VIAL ONE (21:38)
[2020-11-08] MEDS ORDERED: NA CHLORIDE 0.9% 1,000 ML ONE (21:38)
[2020-11-08] MEDS ORDERED: MORPHINE 4 MG/ML SYR ONE (21:38)
[2020-11-08 21:41] LABS: Absolute Lymphocytes (CBC) 0.3 K/uL (0.7-4.9); Basophils % 0.2 % (0-1.3); Hematocrit 41.1 % (39.6-49.0); Lymphocytes % 2.9 % (15.3-44.8); MPV 7.3 fL (7.6-11.3); RBC Red Blood Cell Count 4.76 M/uL (4.33-5.43)
[2020-11-08 21:53] LABS: Albumin 3.9 g/dL (3.4-5.0); Bilirubin Direct 0.2 mg/dL (0-0.2); Bilirubin Total 0.9 mg/dL (0.2-1.0); Potassium 3.5 mmol/L (3.5-5.1); Protein, Total 7.6 g/dL (6.4-8.2)
[2020-11-08 23:04] LABS: Blood Morphology Comment NOT SEEN (NOT SEEN); Platelet Estimate ADEQ
[2020-11-09 00:03] LABS: Urine Blood Negative (Negative); Urine Glucose Negative (Negative); Urine Protein Negative (Negative); Urine Specific Gravity >=1.030 (1.005-1.030); Urine pH 5.5 (5.0-7.0)
--- NOTE | 2020-11-09 00:41 | ER ---
Nurse's Notes [facility] Name: Artis Myers Age: 45 yrs Sex: Male : 1975 Arrival Date: 11/08/2020 Time: 20:12 Bed 4 Private MD: Diagnosis: Low back pain Presentation: 11/08 20:40 Chief complaint: Patient states: body aches x1 week, denies fever/chills. Coronavirus ak2 screen: Client denies travel out of the [place] in the last 14 days. Ebola Screen: Patient negative for fever greater than or equal to 101.5 degrees Fahrenheit, and additional compatible Ebola Virus Disease symptoms Patient denies exposure to infectious person. Patient denies travel to an Ebola-affected area in the 21 days before illness onset. No symptoms or risks identified at this time. Initial Sepsis Screen: Does the patient meet any 2 criteria? No. Patient's initial sepsis screen is negative. Does the patient have a suspected source of infection? No. Patient's initial sepsis screen is negative. Risk Assessment: Do you want to hurt yourself or someone else? Patient reports no desire to harm self or others. Onset of symptoms was November 01, 2020. 20:40 Method Of Arrival: Ambulatory ak2 20:40 Acuity: DAIANA 3 ak2 20:40 Acuity: DAIANA 4 ak2 20:40 Acuity: DAIANA 3 ak2 Triage Assessment: 20:43 General: Appears in no apparent distress. Behavior is calm, cooperative. Pain:. Pain: ak2 Complains of pain in back. Musculoskeletal: Historical: - Allergies: 20:43 Iodine; ak2 20:43 Sulfa (Sulfonamide Antibiotics); ak2 - Immunization history:: Adult Immunizations up to date. - Social history:: Smoking status: unknown. - Family history:: not pertinent. Screenin:30 Abuse screen: Denies threats or abuse. Denies injuries from another. Nutritional ad5 screening: No deficits noted. Tuberculosis screening: No symptoms or risk factors identified. Fall Risk None identified. Assessment: 21:30 General: Appears uncomfortable, Behavior is calm, cooperative, appropriate for age. ad5 Pain: Complains of pain in lower abd, lower back. Neuro: Level of Consciousness is awake, alert, obeys commands, Oriented to person, place, time, situation, Appropriate for age Technical Editor are equal bilaterally Moves all extremities. Gait is steady, Speech is normal, Facial symmetry appears normal, Pupils are PERRLA, Intact. Cardiovascular: Heart tones present Capillary refill < 3 seconds Patient's skin is warm and dry. Pulses are all present. Rhythm is regular. Respiratory: Airway is patent Respiratory effort is even, unlabored, Respiratory pattern is regular, symmetrical, Breath sounds are clear bilaterally. GI: Abdomen is flat, Bowel sounds present X 4 quads. Reports lower abdominal pain, nausea. : Reports burning with urination, pain in bilateral flank(s), urinary frequency. EENT: No deficits noted. Derm: No deficits noted. Skin is pink, warm \T\ dry. Musculoskeletal: No deficits noted. 22:28 Reassessment: Patient and/or family updated on plan of care and expected duration. Pain ad5 level reassessed. Patient is alert, oriented x 3, equal unlabored respirations, skin warm/dry/pink. Patient states feeling better. 23:26 Reassessment: Patient appears in no apparent distress at this time. No changes from ad5 previously documented assessment. Patient and/or family updated on plan of care and expected duration. Pain level reassessed. Patient is alert, oriented x 3, equal unlabored respirations, skin warm/dry/pink. 11/09 00:50 Reassessment: Patient appears in no apparent distress at this time. No changes from ad5 previously documented assessment. Patient states symptoms have improved. Vital Signs: 11/08 20:40 BP 112 / 79; Pulse 91; Resp 20; Temp 98.8; Pulse Ox 100% ; Weight 86.18 kg; Height 5 ak2 ft. 9 in. (175.26 cm); 22:28 BP 133 / 81; Pulse 80; Resp 16 S; Pulse Ox 98% on R/A; Pain 5/10; ad5 23:27 BP 128 / 73; Pulse 84; Resp 16 S; Pulse Ox 97% on R/A; ad5 11/09 00:50 BP 110 / 74; Pulse 90; Resp 16 S; Pulse Ox 97% on R/A; Pain 3/10; ad5 11/08 20:40 Body Mass Index 28.06 (86.18 kg, 175.26 cm) ak2 ED Course: 11/08 20:12 Patient arrived in ED. ag3 20:43 Triage completed. ak2 20:54 Justin Glez MD is Attending Physician. ma2 20:57 Flaco Jesus is Primary Nurse. ad5 21:25 Initial lab(s) drawn, by me, sent to lab. Inserted saline lock: 20 gauge in right ad5 antecubital area, using aseptic technique. 21:30 Patient has correct armband on for positive identification. Bed in low position. Call ad5 light in reach. Side rails up X2. Pulse ox on. NIBP on. Warm blanket given. Head of bed lowered. 21:30 No provider procedures requiring assistance completed. ad5 23:36 Abdomen Sent. ad5 23:59 Abdomen In Process Unspecified. EDMS 11/09 00:51 IV discontinued, intact, bleeding controlled, No redness/swelling at site. Pressure ad5 dressing applied. Administered Medications: 11/08 21:27 Drug: NS 0.9% 1000 ml Route: IV; Rate: 1 bolus; Site: right antecubital; ad5 11/09 00:14 Follow up: IV Status: Completed infusion; IV Intake: 1000ml ad5 11/08 21:28 Drug: Zofran (Ondansetron) 4 mg Route: IVP; Site: right antecubital; ad5 22:35 Follow up: Response: No adverse reaction; Pain is decreased jm8 21:29 Drug: morphine 4 mg {Note: RASS 0.} Route: IVP; Site: right antecubital; ad5 22:35 Follow up: Response: No adverse reaction; Pain is decreased jm8 Intake: 11/09 00:14 IV: 1000ml; Total: 1000ml. ad5 Outcome: 00:41 Discharge ordered by . ma2 00:51 Discharged to home ambulatory. ad5 00:51 Condition: stable 00:51 Discharge instructions given to patient, Instructed on discharge instructions, follow up and referral plans. medication usage, Demonstrated understanding of instructions, follow-up care, medications, Prescriptions given X 2. 00:52 Patient left the ED. ad5 Signatures: Dispatcher [employer] EDIA Justin Glez MD MD ma2 Lian Estrella 3 Daniel Yeh, RN RN jm8 Flaco Jesus ad5 Iggy Lozano
--- NOTE | 2020-11-09 00:42 | EDPHYS ---
Physician Documentation [facility] Name: Artis Myers Age: 45 yrs Sex: Male : 1975 Arrival Date: 11/08/2020 Time: 20:12 Bed 4 Private MD: ED Physician Justin Glez HPI: 11/08 21:45 This 45 yrs old Male presents to ER via Ambulatory with complaints of Back ma2 Pain. 21:45 The patient presents with pain that is acute. The symptoms are located in the low back. ma2 Onset: The symptoms/episode began/occurred gradually, 1 day(s) ago. Associated signs and symptoms: Pertinent negatives: dysuria, headache, hematuria, nausea. Severity of symptoms: At their worst the symptoms were mild, in the emergency department the symptoms are unchanged. The patient has not experienced similar symptoms in the past. Historical: - Allergies: 20:43 Iodine; ak2 20:43 Sulfa (Sulfonamide Antibiotics); ak2 - Immunization history:: Adult Immunizations up to date. - Social history:: Smoking status: unknown. - Family history:: not pertinent. ROS: 21:45 Constitutional: Negative for fever, chills, and weight loss. ma2 21:45 All other systems are negative. Exam: 21:45 Constitutional: This is a well developed, well nourished patient who is awake, alert, ma2 and in no acute distress. Chest/axilla: Normal chest wall appearance and motion. Nontender with no deformity. No lesions are appreciated. Cardiovascular: Regular rate and rhythm with a normal S1 and S2. No gallops, murmurs, or rubs. Normal PMI, no JVD. No pulse deficits. Respiratory: Lungs have equal breath sounds bilaterally, clear to auscultation and percussion. No rales, rhonchi or wheezes noted. No increased work of breathing, no retractions or nasal flaring. Abdomen/GI: Soft, non-tender, with normal bowel sounds. No distension or tympany. No guarding or rebound. No evidence of tenderness throughout. MS/ Extremity: Pulses equal, no cyanosis. Neurovascular intact. Full, normal range of motion. Neuro: Awake and alert, GCS 15, oriented to person, place, time, and situation. Cranial nerves II-XII grossly intact. Motor strength 5/5 in all extremities. Sensory grossly intact. Cerebellar exam normal. Normal gait. Vital Signs: 20:40 BP 112 / 79; Pulse 91; Resp 20; Temp 98.8; Pulse Ox 100% ; Weight 86.18 kg; Height 5 ak2 ft. 9 in. (175.26 cm); 22:28 BP 133 / 81; Pulse 80; Resp 16 S; Pulse Ox 98% on R/A; Pain 5/10; ad5 23:27 BP 128 / 73; Pulse 84; Resp 16 S; Pulse Ox 97% on R/A; ad5 11/09 00:50 BP 110 / 74; Pulse 90; Resp 16 S; Pulse Ox 97% on R/A; Pain 3/10; ad5 11/08 20:40 Body Mass Index 28.06 (86.18 kg, 175.26 cm) ak2 MDM: 11/08 21:06 Patient medically screened. [facility] 21:45 Differential diagnosis: Fatigue Fracture Osteoarthritis Pyelonephritis sprain. [facility] 11/09 00:41 Data reviewed: vital signs, nurses notes. Counseling: I had a detailed discussion with [facility] the patient and/or guardian regarding: the historical points, exam findings, and any diagnostic results supporting the discharge/admit diagnosis, the presence of at least one elevated blood pressure reading (>120/80) during this emergency department visit, the need for outpatient follow up. Response to treatment: the patient's symptoms have markedly improved after treatment. 11/08 21:16 Order name: Basic Metabolic Panel; Complete Time: 22:59 [facility] 11/08 21:16 Order name: CBC with Diff; Complete Time: 23:16 [facility] 11/08 21:16 Order name: Hepatic Function; Complete Time: 22:59 [facility] 11/08 21:16 Order name: Lipase; Complete Time: 22:59 [facility] 11/08 21:51 Order name: Manual Differential; Complete Time: 23:16 [facility] 11/09 00:04 Order name: Urine Dipstick-Ancillary; Complete Time: 00:36 [facility] 11/08 21:16 Order name: IV Saline Lock; Complete Time: 21:29 [facility] 11/08 21:16 Order name: Labs collected and sent; Complete Time: 21:29 [facility] 11/08 21:20 Order name: Abdomen [facility] 11/09 00:06 Order name: Urine Dipstick-Ancillary [facility] 11/08 21:16 Order name: Urine Dipstick-Ancillary (obtain specimen); Complete Time: 00:08 ma2 Administered Medications: 11/08 21:27 Drug: NS 0.9% 1000 ml Route: IV; Rate: 1 bolus; Site: right antecubital; ad5 11/09 00:14 Follow up: IV Status: Completed infusion; IV Intake: 1000ml ad5 11/08 21:28 Drug: Zofran (Ondansetron) 4 mg Route: IVP; Site: right antecubital; ad5 22:35 Follow up: Response: No adverse reaction; Pain is decreased 8 21:29 Drug: morphine 4 mg {Note: RASS 0.} Route: IVP; Site: right antecubital; ad5 22:35 Follow up: Response: No adverse reaction; Pain is decreased 8 Disposition: 11/09/20 00:41 Discharged to Home. Impression: Low back pain. - Condition is Stable. - Discharge Instructions: Back Pain, Adult. - Prescriptions for Cyclobenzaprine 10 mg Oral Tablet - take 1 tablet by ORAL route every 8 hours As needed; 30 tablet. Diclofenac Sodium 75 mg Oral Tablet Sustained Release - take 1 tablet by ORAL route 2 times per day; 30 tablet. - Medication Reconciliation Form, Thank You Letter, Antibiotic Education, Prescription Opioid Use form. - Follow up: Private Physician; When: Tomorrow; Reason: Recheck today's complaints. Signatures: Dispatcher [employer] [facility] Justin Glez MD MD ma2 Flaco Jesus ad5 Iggy Lozano2 Daniel Yeh RN jm8 Corrections: (The following items were deleted from the chart) 21:19 21:17 Abdomen Pelvis W Con+CT.[id number].[id number] ordered. [facility] 11/09 00:52 00:41 11/09/2020 00:41 Discharged to Home. Impression: Low back pain. Condition is ad5 Stable. Forms are Medication Reconciliation Form, Thank You Letter, Antibiotic Education, Prescription Opioid Use. Follow up: Private Physician; When: Tomorrow; Reason: Recheck today's complaints. ma2
[2020-11-09 01:58] VITALS: TEMP 98.8
[2020-11-09 02:02] VITALS: O2SAT 97
[2020-11-09 02:04] VITALS: BP 110/74
--- NOTE | 2020-11-09 11:09 | RAD REPORT ---
EXAM DESCRIPTION: Abdomen Pelvis Wo Contrast CLINICAL HISTORY: 45 years Male ABD PAIN COMPARISON: None. TECHNIQUE: Contiguous axial images obtained through the abdomen and pelvis without IV contrast. The images were obtained following oral contrast. Reformatted images obtained. This exam was performed according to our department optimization program which includes automated exp osure control, adjustment of the mA and/or kv according to patient size and/or use of iterative recon struction technique. FINDINGS: The lung bases are clear. The liver appears unremarkable. The spleen and pancreas appear unremarkable. No adrenal masses. The kidneys appear unremarkable. No hydronephrosis or definite ureteral calculi. The gallbladder is visualized. No aneurysmal dilatation of the aorta. No bowel obstruction. The appendix appears unremarkable. No significant free pelvic fluid. IMPRESSION: No acute intra-abdominal abnormality is identified. Electronically signed by: Rc Rahman MD 11/09/2020 12:15 AM CDT Due to temporary technical issues with the PACS/Fluency reporting system, reports are being signed by the in house radiologist without review as a courtesy to ensure prompt reporting. The interpreting r adiologist is fully responsible for the content of the report.
== END 2020-11-09 00:52 | disposition home or self-care (01) ==
LOC: ER 20:06
DX: M54.5 Low back pain (principal); Z88.2 Allergy status to sulfonamides; Z91.048 Other nonmedicinal substance allergy status
CPT/HCPCS: 36415; 74176; 80048; 80076; 81003; 83690; 85025; 96361; 96374; 96375; 99284; J2405; J7030

== ENCOUNTER 2021-02-19 19:33 | Emergency (ER) | payer SELFPAY ==
--- NOTE | 2021-02-19 22:58 | ER ---
Nurse's Notes [facility] Name: Artis Myers Age: 45 yrs Sex: Male : 1975 Arrival Date: 02/19/2021 Time: 19:37 Bed Waiting Private MD: Diagnosis: ED Course: 02/19 19:37 Patient arrived in ED. ja2 22:57 Patient's name was called from ER lobby. No response. Unable to locate patient. Will bb disposition as left without being seen by a provider. Administered Medications: No medications were administered Outcome: 22:57 Patient left the ED. bb Signatures: Monica Adams RN RN Khadijah Holden
== END 2021-02-19 22:57 | disposition left against medical advice (07) ==
LOC: ER 19:33
DX: Z02.9 Encounter for administrative examinations, unspecified (principal)